=== PATIENT | female | born 1965 | race Caucasian/White ===

== ENCOUNTER → 2019-01-24 | Outpatient (CLI) | payer OTHER | END | disposition home or self-care (01) | LOC: LAB 16:26 → LAB SHORT 16:26 | DX: R21 Rash and other nonspecific skin eruption (principal) | CPT/HCPCS: 87071; 87075; 87205 ==

== ENCOUNTER → 2019-08-26 | Outpatient (CLI) | payer OTHER | END | disposition home or self-care (01) | LOC: LAB SHORT 13:33 → LAB 13:33 | DX: Z53.8 Procedure and treatment not carried out for other reasons (principal) ==

== ENCOUNTER 2019-11-29 00:51 | Emergency (ER) | payer OTHER ==
[~2019-11-29] VITALS: Ht 162.6 cm; Wt 95.2 kg
[2019-11-29] MEDS ORDERED: METO25 PO (01:02)
[2019-11-29] MEDS ORDERED: Prinivil10 MG PO (01:03)
[2019-11-29] MEDS ORDERED: ACAR50 PO (01:03)
[2019-11-29] MEDS ORDERED: LIRA0.6P (01:03)
[2019-11-29 01:27] LABS: BASOPHILS ABSOLUTE AUTO 0.09 K/mm3 (0.00-0.23); BASOPHILS PERCENT AUTO 1 % (0-2); EOSINOPHILS ABSOLUTE AUTO 0.32 K/mm3 (0.00-0.68); EOSINOPHILS PERCENT AUTO 2 % (0-6); Hematocrit 47.1 % (33.0-51.0); Hemoglobin 15.5 g/dL (11.5-16.0); IMMATURE GRAN ABSOLUTE AUTO 0.06 K/mm3 (0.00-0.10); IMMATURE GRAN PERCENT AUTO 0 % (0-1); LYMPHOCYTES ABSOLUTE AUTO 5.59 K/mm3 (0.84-5.20); LYMPHOCYTES PERCENT AUTO 33 % (21-46); MONOCYTES ABSOLUTE AUTO 1.08 K/mm3 (0.16-1.47); MONOCYTES PERCENT AUTO 6 % (4-13); Mean Corpuscular HGB 28.9 pg (26.0-34.0); Mean Corpuscular HGB Conc 32.9 g/dL (31.5-36.5); Mean Corpuscular Volume 88 fL (80-100); NEUTROPHILS ABSOLUTE AUTO 9.76 K/mm3 (1.96-9.15); NEUTROPHILS PERCENT AUTO 58 % (41-73); RDW Coefficient Variation 13.1 % (11.7-14.2); RDW Standard Deviation 42.2 fL (35.1-46.3); Red Blood Cell Count 5.36 M/mm3 (3.80-5.20)
[2019-11-29 01:32] LABS: Mean Platelet Volume 12.4 fL (9.1-12.4); Platelet Count 256 K/mm3 (150-400)
[2019-11-29 01:43] LABS: Alanine Aminotransfer (ALT/SGP 22 U/L (12-78); Albumin, Blood 2.9 g/dL (3.4-5.0); Albumin/Globulin Ratio 0.7 (0.8-1.8); Alk Phos 102 U/L (50-136); Anion Gap 7 mmol/L (6-16); Aspartate Aminotrans (AST/SGOT 14 U/L (12-37); Bilirubin, Total 0.3 mg/dL (0.1-1.0); Blood Urea Nitrogen 10 mg/dL (8-24); Bun/Creatinine Ratio 21.6 (12.0-20.0); CO2, Blood 24 mmol/L (21-32); Calcium, Blood 8.9 mg/dL (8.5-10.1); Chloride, Blood 104 mmol/L (98-108); Creatinine, Blood 0.46 mg/dL (0.40-1.00); Globulin, Blood 4.2 g/dL (2.2-4.0); Glomerular Filtration Rate >60 (60-); Glucose, Blood 293 mg/dL (70-99); Sodium, Blood 135 mmol/L (136-145); Total Protein, Blood 7.1 g/dL (6.4-8.2)
[2019-11-29 01:47] LABS: Magnesium, Blood 1.8 mg/dL (1.6-2.4)
[2019-11-29] MEDS ORDERED: Flagyl500 MG PO (04:19)
[2019-11-29] MEDS ORDERED: Cipro500 MG PO (04:19)
== END 2019-11-29 04:36 | disposition home or self-care (01) ==
LOC: ER 00:51
PROVIDERS: Emergency Medicine
DX: K52.9 Noninfective gastroenteritis and colitis, unspecified (principal); I10 Essential (primary) hypertension; Z79.899 Other long term (current) drug therapy
CPT/HCPCS: 36415; 74176; 80053; 83605; 83690; 83735; 84145; 85025; 99284-25; A9270; A9270-GY

== ENCOUNTER 2021-09-14 17:57 | Inpatient (IN) | payer OTHER ==
[~2021-09-14] VITALS: Ht 162.6 cm; Wt 99.1 kg
[~2021-09-14 17:57] MED LIST: ACAR50 PO; Cipro500 MG PO; Flagyl500 MG PO; LIRA0.6P; METO25 PO; Prinivil10 MG PO
[2021-09-14] MEDS ORDERED: TRESIBA FL100 UNIT/2 SC (18:28)
[2021-09-14] MEDS ORDERED: OMEP20ER PO (18:28)
[2021-09-14] MEDS ORDERED: ASPIR 8181 MG PO (18:29)
[2021-09-14 21:46] LABS: Anti-Xa UFH, PHA Monitoring <0.10 IU/mL; International Normalized Ratio 1.07; Prothrombin Time Results 11.2 Sec (9.7-11.5)
[2021-09-14 22:27] LABS: Mean Platelet Volume 12.3 fL (9.1-12.4); Platelet Count 228 K/mm3 (150-400)
[2021-09-15 04:25] LABS: BASOPHILS ABSOLUTE AUTO 0.06 K/mm3 (0.00-0.23); BASOPHILS PERCENT AUTO 1 % (0-2); EOSINOPHILS ABSOLUTE AUTO 0.18 K/mm3 (0.00-0.68); EOSINOPHILS PERCENT AUTO 2 % (0-6); Hematocrit 41.4 % (33.0-51.0); Hemoglobin 13.3 g/dL (11.5-16.0); IMMATURE GRAN ABSOLUTE AUTO 0.04 K/mm3 (0.00-0.10); IMMATURE GRAN PERCENT AUTO 0 % (0-1); LYMPHOCYTES ABSOLUTE AUTO 4.28 K/mm3 (0.84-5.20); LYMPHOCYTES PERCENT AUTO 36 % (21-46); MONOCYTES PERCENT AUTO 7 % (4-13); Mean Corpuscular HGB 28.3 pg (26.0-34.0); Mean Corpuscular HGB Conc 32.1 g/dL (31.5-36.5); Mean Corpuscular Volume 88 fL (80-100); NEUTROPHILS ABSOLUTE AUTO 6.69 K/mm3 (1.96-9.15); NEUTROPHILS PERCENT AUTO 56 % (41-73); RDW Coefficient Variation 13.7 % (11.7-14.2); RDW Standard Deviation 43.8 fL (35.1-46.3); White Blood Cell Count 12.05 K/mm3 (4.00-11.30)
[2021-09-15 04:27] LABS: Mean Platelet Volume 12.9 fL (9.1-12.4); Platelet Count 200 K/mm3 (150-400)
[2021-09-15 05:18] LABS: Alanine Aminotransfer (ALT/SGP 34 U/L (12-78); Albumin, Blood 3.1 g/dL (3.4-5.0); Albumin/Globulin Ratio 0.8 (0.8-1.8); Alk Phos 103 U/L (50-136); Anion Gap 8 mmol/L (6-16); Aspartate Aminotrans (AST/SGOT 55 U/L (12-37); Bilirubin, Total 0.3 mg/dL (0.1-1.0); Blood Urea Nitrogen 11 mg/dL (8-24); Bun/Creatinine Ratio 21.5 (12.0-20.0); CO2, Blood 28 mmol/L (21-32); Calcium, Blood 9.4 mg/dL (8.5-10.1); Chloride, Blood 102 mmol/L (98-108); Creatinine, Blood 0.51 mg/dL (0.40-1.00); Globulin, Blood 3.9 g/dL (2.2-4.0); Glomerular Filtration Rate >60 (60-); Glucose, Blood 218 mg/dL (70-99); Magnesium, Blood 1.9 mg/dL (1.6-2.4); Phosphorus, Blood 4.2 mg/dL (2.5-4.9); Potassium, Blood 4.2 mmol/L (3.5-5.5); Sodium, Blood 138 mmol/L (136-145)
[2021-09-15 09:28] LABS: Free Thyroxine 1.49 ng/dL (0.70-1.60)
[2021-09-15 09:29] LABS: Thyroid Stimulating Hormone 1.86 uIU/mL (0.360-4.800)
[2021-09-15 09:57] LABS: Influenza A, PCR NEGATIVE (NEGATIVE); Influenza B, PCR NEGATIVE (NEGATIVE); Resp Syncytial Virus, PCR NEGATIVE (NEGATIVE); SARS-Cov-2 (COVID-19) PCR, MMC NEGATIVE (NEGATIVE)
--- NOTE | 2021-09-15 12:20 | NUR ---
[facility] PT. [facility]IVES [facility], ALERT AND ORIENTED, AT BEDSIDE. PT. HAS TR BAND IN PLACE TO RIGHT WRIST, INFLATED WITH 18CC OF AIR PER HC STAFF. PT. DENIES ANY PAIN, NUMBNESS OR TINGLING TO DISTAL FINGERS, NO SWELLING OR BLEEDING NOTED. PT. DENIES ANY CHEST PAIN OR PRESSURE UPON ARRIVAL. PT CONTINUES ON NITRO GTT AT 15MCG/MIN. DR. VALERO TO BEDSIDE, PER DR. VALERO KEEP NITRO INFUSING AT 15MCG/MIN AND CALL IF PT BEGINS TO EXPERIANCE ANY ADDITIONAL CHEST PAIN OR PRESSURE. TRANSFER INITIATED TO [facility]. ACCEPTING PHYSICAIN AWAITING BED PLACEMENT. PER DR. VALERO PT OKAY TO EAT, SNACKS PROVIDED AND DIET ORDRED. PT. ANXIOUS REGARDING DIAGNOSIS AND TRASNFER. REMAINS AT BEDSIDE FOR SUPPORT. VSS AT THIS TIME. CALL LIGHT IN REACH.
[2021-09-15 12:57] LABS: CHOL/HDL RATIO 6.2; Cholesterol 275 mg/dL (50-200); HDL Cholesterol 44 mg/dL (>39); Low Density Lipoprotein Chol 178 mg/dL (0-110); Triglycerides 266 mg/dL (30-160); Very Low Density Lipoprot Chol 53 mg/dL (6-32)
--- NOTE | 2021-09-15 13:05 | NUR ---
Echocardiogram completed.
--- NOTE | 2021-09-15 13:08 | NUR ---
TANK [employer] CLE[employer]ER AT BEDSIDE
--- NOTE | 2021-09-15 13:59 | NUR ---
ATTEMPTED TO SLOWLY DEFLATE TR BAND, 4CC OF AIR REMOVED AND PT BEGAN TO OOZE. 2CC REINSTILLED, WILL REASSESS. PT. C/O HEADACHE. MED WITH LOW DOSE MORPHINE AND TYLENOL PER ORDER. NITRO CONTINUES INFUSING. ADDITIONAL IV ACCESS OBTAINED.
--- NOTE | 2021-09-15 16:51 | NUR ---
TR BAND DELFATED SLOWLY. REMAINS INPLACE AT THIS TIME FOR TRANSPORT. ROOM ASSIGNMENT FROM [facility] ROOM [id number]
--- NOTE | 2021-09-15 16:52 | NUR ---
FAMILY PROVIDED WITH
--- NOTE | 2021-09-15 17:33 | NUR ---
PT TRANSFERRED VIA [facility]. VSS PRIOR TO TRANSFER, SENT ON NS AT 100ML/HR. ALL BELONGINGS TAKEN BY PT AND PTShahla SHIRLEY CALLED TO NOTIFY OF DEPARTURE.
== END 2021-09-15 17:33 | disposition short-term general hospital (02) | DRG 282 ==
LOC: ER 17:57 → ERHOLD 20:20 → ER 20:20 → ICUE 09-15 11:25
PROVIDERS: Family Medicine; Internal Medicine Cardiovascular Disease; Pharmacist; ADMIT Internal Medicine
PROC: 4A023N7 Measurement of Cardiac Sampling and Pressure, Left Heart, Percutaneous Approach (ICD-10-PCS; principal; 2021-09-15)
PROC: B2111ZZ Fluoroscopy of Multiple Coronary Arteries using Low Osmolar Contrast (ICD-10-PCS; 2021-09-15)
DX: I21.4 Non-ST elevation (NSTEMI) myocardial infarction (principal); Z20.822 Contact with and (suspected) exposure to COVID-19; I10 Essential (primary) hypertension; R00.0 Tachycardia, unspecified; D72.829 Elevated white blood cell count, unspecified; I25.10 Atherosclerotic heart disease of native coronary artery without angina pectoris; L92.0 Granuloma annulare; E11.9 Type 2 diabetes mellitus without complications; K21.9 Gastro-esophageal reflux disease without esophagitis; Z90.49 Acquired absence of other specified parts of digestive tract; Z88.3 Allergy status to other anti-infective agents; Z79.82 Long term (current) use of aspirin; Z79.899 Other long term (current) drug therapy
CPT/HCPCS: 0241U; 36415; 71045; 71275; 76937; 80053; 80061; 82947; 83036; 83735; 83880; 84100; 84439; 84443; 84484; 85025; 85049; 85347; 85520; 85610; 85730; 93005; 93010; 93306; 93458; 96365; 96366; 96376; 99152; 99153; 99285-25; A9270; C1769; C1894; J1644; J1815; J2250; J2270; J2370; J2405; J3010; J7030; J7050; Q9967

== ENCOUNTER 2021-11-04 11:10 | Day surgery (SDC) | payer OTHER ==
[~2021-11-04 11:10] MED LIST changes: +ASPIR 8181 MG PO; +OMEP20ER PO; +TRESIBA FL100 UNIT/2 SC
== END 2021-11-04 23:10 | disposition home or self-care (01) ==
LOC: WOUND 11:10
DX: T81.32XD Disruption of internal operation (surgical) wound, not elsewhere classified, subsequent encounter (principal); Z88.8 Allergy status to other drugs, medicaments and biological substances

== ENCOUNTER 2021-11-07 11:29 | Day surgery (SDC) | payer OTHER | END 2021-11-07 23:28 | disposition home or self-care (01) | LOC: WOUND 11:29 | DX: T81.32XA Disruption of internal operation (surgical) wound, not elsewhere classified, initial encounter (principal); Y83.9 Surgical procedure, unspecified as the cause of abnormal reaction of the patient, or of later complication, without mention of misadventure at the time of the procedure ==

== ENCOUNTER 2021-11-11 00:49 | Day surgery (SDC) | payer OTHER | END 2021-11-11 23:56 | disposition home or self-care (01) | LOC: WOUND 00:49 | DX: T81.32XA Disruption of internal operation (surgical) wound, not elsewhere classified, initial encounter (principal); E11.9 Type 2 diabetes mellitus without complications; I10 Essential (primary) hypertension; Z95.1 Presence of aortocoronary bypass graft ==

== ENCOUNTER 2021-11-14 03:09 | Day surgery (SDC) | payer OTHER | END 2021-11-14 23:31 | disposition home or self-care (01) | LOC: WOUND 03:09 | DX: T81.32XA Disruption of internal operation (surgical) wound, not elsewhere classified, initial encounter (principal); Y83.8 Other surgical procedures as the cause of abnormal reaction of the patient, or of later complication, without mention of misadventure at the time of the procedure ==

== ENCOUNTER 2021-11-18 01:13 | Day surgery (SDC) | payer OTHER | END 2021-11-18 22:52 | disposition home or self-care (01) | LOC: WOUND 01:13 | DX: T81.32XD Disruption of internal operation (surgical) wound, not elsewhere classified, subsequent encounter (principal); E11.9 Type 2 diabetes mellitus without complications; I10 Essential (primary) hypertension; Z95.1 Presence of aortocoronary bypass graft | CPT/HCPCS: A9270; G0463 ==

== ENCOUNTER 2021-11-28 02:20 | Day surgery (SDC) | payer OTHER | END 2021-11-28 22:41 | disposition home or self-care (01) | LOC: WOUND 02:20 | DX: T81.32XA Disruption of internal operation (surgical) wound, not elsewhere classified, initial encounter (principal); E11.9 Type 2 diabetes mellitus without complications; I10 Essential (primary) hypertension; Z95.1 Presence of aortocoronary bypass graft; Y83.8 Other surgical procedures as the cause of abnormal reaction of the patient, or of later complication, without mention of misadventure at the time of the procedure | CPT/HCPCS: G0463 ==

== ENCOUNTER 2021-12-05 01:19 | Day surgery (SDC) | payer OTHER | END 2021-12-05 23:37 | disposition home or self-care (01) | LOC: WOUND 01:19 | DX: T81.32XD Disruption of internal operation (surgical) wound, not elsewhere classified, subsequent encounter (principal); E11.9 Type 2 diabetes mellitus without complications; I10 Essential (primary) hypertension; Y83.2 Surgical operation with anastomosis, bypass or graft as the cause of abnormal reaction of the patient, or of later complication, without mention of misadventure at the time of the procedure; Z95.1 Presence of aortocoronary bypass graft | CPT/HCPCS: G0463 ==